=== PATIENT | female | born 1985 | race Caucasian/White ===

== ENCOUNTER 2018-05-05 12:30 | Outpatient (RCR) | payer OTHER, SELFPAY ==
--- NOTE | 2018-04-28 10:30 | PTTR_ITS ---
DATE: 04/28/18 SUBJECTIVE: Sharon has been under the care of Ghassan Min ND at [facility] in [place]. She has been under extensive diagnostics and blood work for Lyme disease, Carla as well as adrenal dysfunction. She was fortunately (-) for Lyme, but remarkable positive for Carla as we had expected , and does have some degree of adrenal dysfunction as well. Both of these diagnoses explain her general malaise. She does state, however, that her muscle pain is much improved since beginning her Carla dye in her Carla treatment, now with a 20-30% improvement. She continues to experience daily headaches and tension through the upper shoulders. Generally worsening during her period. She admits to discontinuing with her HEP as she has already felt over whelmed with her Carla treatment. She is here today to reinitiate aquatic therapy as she would like to get back into conditioning that would be non-aggravating to her. She would like a refresher in eduction in her exercises. She also feels that some intermittent treatment to her neck would be helpful for her symptom management, but she doesn't feel she needs this at high frequency. OBJECTIVE: ROM: C-spine 70 degrees bilateral rotation, sidebend 45, flexion/extension 45 degrees, OA WNL. Bilateral UE's are about 170 degrees flexion/abduction with end range soft tissue restriction, IR/ER WNL. Lumbar movements are essentially WNL, but she reports end range tightness, particularly into flexion/extension and demonstrates some facial grimacing and slow movement getting out of the position due to her stiffness. Bilateral hips are WNL, but has anterior hip and groin pain with end range adduction and IR. Passive lumbar movements are full into rotation and with SLR , but again has general stiffness throughout her SLR only achieves about 60 degrees bilaterally. ACCESSORY MOTIONS: Looked at her primary complaint of the c-spine demonstrating good articular movement and PA's unilaterally and centrally, OA joint is WNL and non-irritable. PALPATION: Minimal tension appreciated through the cervical, thoracic region, but tenderness along OA region bilateral upper traps, paraspinals and through the lumbar fascia. Therapeutic procedures ([id number]). In addition to above assessment, review use of proper intrinsic core activation, glut and segmental bridging for general stabilization and postural recruitment. She is verbally encouraged to complete 20-30 mins of basic exercise per day of just walking, swimming, stationary cycling, etc. . . for central nervous system stimulation for pain management, via endorphin, serotonin release to attempt proper posture with all activities to refrain from exacerbation of neck pain. She is then seen by Mary Peterson PTA for completion of some manual work per my instruction due to extensive amount of time with her re-assessment today. A: Sharon returns to PT with continued soft tissue dysfunction, but improved since initiating treatment for systemic Carla. Unfortunately, her GI issues and fatigue are not greatly improved, but this is anticipated to improve as she continues with her treatment. At this point, I think initiating aquatic therapy is required to offer some low impact conditioning that will not exacerbate her fascial pain. She will only need 2-3 session for review of her exercises and ensure that she can do this independently. As she gains strength and improved tolerance to exercise, I think then transition to a land based conditioning program, would certainly be appropriate. Otherwise, she is encouraged to complete 20-30 mins of cardiovascular low impact exercise daily for central nervous system stimulation as noted above. While she demonstrates fairly good mobility,. she does have gross stiffness and restriction at end ranges mainly due to her facial dysfunction, which makes her appropriate for PT management for soft tissue m manipulation, general stretching and OA mobilization to reduce cervicogenic fascial pain as needed. P: Schedule 1-2 aquatic sessions for progression onto independent routine and education in proper exercises. She will be seen here for manual therapy of the cervical, thoracic and OA region for pain management extending through the lumbar spine as needed, and manual stretching to reduce fascial restriction. Transition onto a land based strengthening program as her symptoms allow. Direct treatment time: 30 mins Total treatment time: 30 mins JH/dl
--- NOTE | 2018-04-28 13:03 | PTTR_ITS ---
DATE: 04/28/18 OBJECTIVE: Co Treatment with PT Luisa Richard Manual therapy: ([id number]). Pt received IASTM with down regulation throughout the cervical para spinals and mid thoracic para spinals while in prone. Pt received STM and trigger point release techniques throughout bilateral cervical para spinals, upper traps, and mid thoracic para spinals. Direct treatment time: 20 Total treatment time: 20
--- NOTE | 2018-05-03 10:51 | AT_ITS ---
05/03/18 ATx2 Skilled cueing throughout for whole body conditioning. Skilled cues for proper movement pattern and intrinsic activation. Incorporated cardiovascular activities for general conditioning purposes and central stimulation.
--- NOTE | 2018-05-05 14:48 | AT_ITS ---
05/05/18 SUBJECTIVE: Sharon stating that she felt okay after last session. She knew that she had done something. Would like to keep most exercises the same today. OBJECTIVE: Aquatic therapy [id number]: Pt instructed in her aquatic therapy program for overall full body strength and conditioning activities. Cues provided throughout for appropriate core muscle activation and appropriate movement mechanics throughout. Kept pt's program the same and we will see how she tolerates this. See flow sheet for specifics. Direct time: 30 minutes Total time: 45 minutes with pt performing her cardiovascular activities and less skilled exercises independently. Daniela Reyes, [employer]
== END 2018-05-06 23:59 | disposition home or self-care (01) ==
LOC: PT 12:30
PROVIDERS: Referring Provider Internal Medicine; Visit Provider Internal Medicine
DX: M54.2 Cervicalgia (principal); M54.5 Low back pain; M25.551 Pain in right hip; M79.9 Soft tissue disorder, unspecified
CPT/HCPCS: 97110; 97113; 97140

== ENCOUNTER 2020-09-25 04:29 | Outpatient (CLI) | payer BC, SELFPAY ==
[2020-09-25 15:48] LABS: Abs Immature Grans 0.02 10^3/uL (0.0-0.06); Absolute Basophil Count 0.03 10^3/uL (0.0-0.2); Absolute Eosinophil Count 0.04 10^3/uL (0.0-0.7); Absolute Lymphocyte Count 1.59 10^3/uL (1.2-3.4); Absolute Monocyte Count 0.51 10^3/uL (0.1-0.8); Absolute Neutrophil Count 3.04 10^3/uL (1.2-6.7); Basophils % 0.6; Eosinophils % 0.8; HCT 40.4 % (36.0-46.0); Immature Grans % 0.4; Lymphocytes % 30.4; MCH 28.4 pg (27.0-33.0); MCHC 32.2 % (32.0-36.0); MCV 88.4 fL (80-95); Monocytes % 9.8; Nucleated RBC 0 %; Platelet Count 217 10^3/uL (130-400); RBC 4.57 10^6/uL (3.93-5.22); RDW 12.2 % (11.7-14.6); RDW-SD 39.8 fL; WBC 5.23 10^3/uL (4.4-10.8)
[2020-09-25 16:34] LABS: Bilirubin Negative (Negative); Blood Negative (Negative); Clarity Clear (Clear); Glucose Negative (Negative); Ketones Negative (Negative); Leukocyte Esterase Negative (Negative); Nitrite Negative (Negative); Specific Gravity >= 1.030 (1.005-1.025); Urobilinogen 0.2 EU/dL (Up TO 0.2)
[2020-09-25 16:38] LABS: ALT 20 U/L (14-59); AST 13 U/L (15-37); Albumin 4.2 g/dL (3.4-5.0); Alkaline Phosphatase 56 U/L (46-116); Anion Gap 5.2 mmol/L (3-11); BUN 14 mg/dL (7-18); Bilirubin, Total 0.3 mg/dL (0.2-1.0); CO2 29.8 mmol/L (21.0-32.0); CREATININE 0.87 mg/dL (0.55-1.02); Calcium 8.4 mg/dL (8.5-10.1); Chloride 103 mmol/L (98-107); Glucose 79 mg/dL (74-106); Potassium 4.3 mmol/L (3.5-5.1); Sodium 138 mmol/L (136-145); TSH (W/Ref FT4) 1.72 uIU/mL (0.36-3.74); Total Protein 7.5 g/dL (6.4-8.2)
== END 2020-09-25 04:49 ==
PROVIDERS: PCP Family Medicine; Visit Provider Family Medicine
DX: R10.9 Unspecified abdominal pain (principal)
CPT/HCPCS: 36415; 80053; 81003; 84443; 85025

== ENCOUNTER 2020-11-19 15:55 | Outpatient (REF) | payer BC, SELFPAY ==
--- NOTE | 2020-11-19 15:45 | PAPFT_PTH ---
PATIENT: Sharon Herrera LOC: [facility] U#:[id number] AGE/SX: 35/F ROOM: RE11/19/[address]: Alyssia Mckinney : 1985 BED: DIS: 11/19/2020 SPEC #: [id number] RECD: 11/19/20 17:49 STATUS: BASSEM WENDY #: [id number] SHOLA: 11/19/20 15:[address]: Alyssia Mckinney DEPT: [facility] Cytology RECD BY: Franny Crowley ENTERED: 11/19/20 17:49 SP TYPE: PAPFT AUGUSTUS DR: Unknown,Unknown Tissues: 1 - CX/ENDOCX FOR PAP SMEARS Procedures: PAP THIN PREP/UVM Screening HPV DNA PROBE Comments: [id number]
== END 2020-11-19 15:56 | disposition home or self-care (01) ==
LOC: LBN 15:55
PROVIDERS: Visit Provider Obstetrics & Gynecology Gynecology
DX: Z12.4 Encounter for screening for malignant neoplasm of cervix (principal); Z11.51 Encounter for screening for human papillomavirus (HPV)
CPT/HCPCS: 88142; 87624

== ENCOUNTER 2021-12-17 01:34 | Outpatient (CLI) | payer BC, SELFPAY ==
--- NOTE | 2021-12-17 | DI.MRI_ITS ---
Exam(s) MR LOWER JOINT RT WO EXAM: MR LOWER JOINT RT WO CLINICAL HISTORY: H/O WORSENING PAIN WITH PLANTAR FLEXION RT ANKLE,TINGLING TECHNIQUE: Multiplanar multisequence MRI was performed without intravenous contrast. COMPARISON: No exams were available for comparison FINDINGS: BONES/JOINTS: No fracture or contusion pattern. No bone lesions identified. The talar dome is smooth. The ankle mortise is maintained. No joint effusion is present. LIGAMENTS: The tibiofibular and calcaneofibular ligaments are intact. The talofibular ligaments are i ntact. The deltoid ligament is intact. The syndesmosis is unremarkable. Sinus tarsi is normal. MUSCULOTENDINOUS STRUCTURES: Achilles tendon: Unremarkable. Plantar fascia: Unremarkable. Anterior Extensor tendons: Unremarkable. Posterior Tibialis: Unremarkable. Flexor Digitorum longus: Unremarkable. Flexor Hallicus longus: Unremarkable. Peroneus longus: Unremarkable. Peroneus brevis:Unremarkable. SOFT TISSUES: Unremarkable. OTHER FINDINGS: None. IMPRESSION: Unremarkable MRI of the Right ankle. DATA REPOSITORY:
== END 2021-12-17 01:54 ==
PROVIDERS: PCP Family Medicine; Visit Provider Podiatrist
DX: M25.571 Pain in right ankle and joints of right foot (principal); R20.2 Paresthesia of skin
CPT/HCPCS: 73721

== ENCOUNTER 2023-07-20 10:29 | Emergency (ER) | payer BC, SELFPAY ==
[2023-07-20 10:32] VITALS: BP 145/95; PULSE 88; RESP 16; TEMP 37.2; O2SAT 99
--- NOTE | 2023-07-20 10:43 | ED.GENADUL_ITS ---
Discharge Plan Disposition Patient Disposition: Home Condition: Stable Discharge Details Clinical Impression: Contusion of right foot Primary Care Provider: Anila Hurley ED Provider: Kailee Styles Home Meds and New Rx's Prescriptions: No Action duloxetine [Cymbalta] 60 mg capsule,delayed release(DR/EC) 60 mg PO DAILY Mirena 20 mcg/24 hours (6 yrs) 52 mg intrauterine device 1 device Intrauterine ibuprofen 200 MG capsule 3 cap PO TID PRN albuterol sulfate [Proventil HFA] 6.7 GM HFA aerosol inhaler 2 puff Inhalation QID PRNQty: 3 lamotrigine 150 mg tablet 150 mg PO DAILY Qty: 30 5RF buspirone 10 mg tablet 20 mg PO DAILY Patient Comments: TAKE ONE TABLET BY MOUTH TWICE A DAY melatonin 3 mg tablet 3 mg PO HS Patient Comments: TAKE ONE TABLET BY MOUTH AT BEDTIME NEEDED FOR INSOMNIA Discharge Instructions Instructions: Foot Contusion (ED) Additional Instructions: Use Tylenol or Motrin as needed for pain. Continue to ice and elevate. Referrals: Anila Hurley MD [Primary Care Provider] - Discharge Data Discharge Physician: Kailee Styles Medical Decision Making 38-year-old female presents for evaluation of ongoing pain to her right fifth toe and lateral foot. Neurologically intact. X-ray negative for fracture. Patient offered postop shoe but declined. She will continue using Tylenol or Motrin as needed for pain. She understands indications to return. HPI General Date/Time Provider Initiated Documentation: 07/20/23 10:42 . HPI Narrative: 38-year-old female presents for evaluation right foot pain. Patient states that she accidentally kicked the bed several days ago. She had ongoing pain to her right fifth toe and foot. No numbness or tingling. No other injury. Related Data Home Medications Medication Instructions Recorded Confirmed ibuprofen 200 mg capsule 3 cap PO TID PRN 02/20/13 07/20/23 albuterol sulfate 90 mcg/actuation 2 puff inhalation QID PRN #3 ea 02/26/16 07/20/23 aerosol inhaler (Proventil HFA) lamotrigine 150 mg tablet 150 mg PO DAILY #30 tab-caps 11/02/18 07/20/23 levonorgestrel 21 mcg/24 hours (8 1 device intrauterine 02/18/21 04/28/22 yrs) 52 mg intrauterine device (Mirena) duloxetine 60 mg capsule,delayed 60 mg PO DAILY 03/12/22 07/20/23 release (Cymbalta) buspirone 10 mg tablet 20 mg PO DAILY 07/20/23 07/20/23 melatonin 3 mg tablet 3 mg PO HS 07/20/23 07/20/23 Previous Rx's Medication Instructions Recorded lamotrigine 150 mg tablet 150 mg PO DAILY #30 tab-caps 11/02/18 Allergies Allergy/AdvReac Type Severity Reaction Status Date / Time No Known Drug Allergies Allergy Verified 07/20/23 10:35 General Stated Complaint: Orthopedic LUZ: 4 Review of Systems Narrative: Review of systems as above. PFSH All Active Problems (Updated 07/20/23 @ 11:20 by Kailee Styles MD) Contusion of right foot (Acute) Ankle impingement syndrome, right (Acute) Ankle pain, right (Acute) Gastrointestinal discomfort (Acute) Onset 2013. Constipation dominant. 02/2021 Eval by [facility] [place] GI service. Vaginal candidiasis (Acute) hx of recurrent vag candidiasis years ago. 11/19/20 new infection: Rx with fluconazole Temporomandibular joint disorder (Acute 02/20/13) Polyp of colon (Acute) 10/30/11 DR. MURPHY; TUBULAR ADENOMA (1-3 YEAR F/U) First degree uterine prolapse (Acute 06/28/13) Depressive disorder (Acute) Constipation (Acute) Bipolar disorder (Acute 06/29/11) Asthma (Acute) Anxiety (Acute 06/29/11) Acne (Acute) IUD surveillance (Acute) 02/2021. Old Mirena replaced with new Mirena. Medical History GI symptom Asthma Depressive disorder Essential hypertension complicating or reason for care during Surgical History S/P tonsillectomy and adenoidectomy Colonoscopy - MAC 10/30/11 DR. MURPHY; TUBULAR ADENOMA (1-3 YR F/U) 08/01/14 DR MURPHY Family History Mother Essential hypertension Depression Hyperlipidemia Grandmother Liver cancer Depression Breast cancer Asthma Father Depression Sister Depression Brother Depression Brother No problems noted. Brother No problems noted. Grandfather No problems noted. Grandfather No problems noted. Grandmother Depression Heart disease Daughter Asthma Daughter No problems noted. Social History Smoking/Tobacco Use Status: Never Smoking risk assessment performed?: Yes Alcohol Intake: current Alcohol Intake frequency: a few times a week Drug use: Never Substance use type: does not use Household members: significant other, children and other Details: Don x4 years. 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 Seatbelt use: always Do you feel safe at home: Yes Do you feel safe in your relationship?: Yes Female Reproductive History Menstrual control method: progestin IUCD History History 2 Para Hx # Term Pregnancies 2 Multiple births Hx # Pregnancies Ectopic pregnancies AB induced Hx Number of Living Children AB spontaneous Exam Narrative Exam Narrative: General: non-toxic, no respiratory distress, comfortable HEENT: normocephalic, atraumatic, lids and lashes normal, PERRL, EOMI, anicteric sclera, no conjunctival injection, moist oral mucosa Musculoskeletal: Diffuse pain to palpation distal right metatarsal, bruising to distal fifth metatarsal, 2+ dorsal pedal pulses, mild decreased range of motion left fifth toe, no pain lateral malleolus, otherwise full range of motion of arms and legs, no tenderness to palpation. no clubbing, cyanosis, or edema Neurologic: appropriate for age, strength normal Psych: alert and oriented Skin: As above, otherwise no petechiae, no lesions, warm and dry Course Vital Signs Vital signs: Vital Signs Temperature 37.2 C 07/20/23 10:32 Pulse 88 07/20/23 10:32 Respiratory Rate 16 07/20/23 10:32 Blood Pressure 145/95 H 07/20/23 10:32 Pulse Oximetry 99 07/20/23 10:32 Temperature 37.2 C 07/20/23 10:32 Temperature Source Skin 07/20/23 10:32 Pulse 88 07/20/23 10:32 Respiratory Rate 16 07/20/23 10:32 Respiratory Effort Normal, Non-Labored 07/20/23 10:36 Blood Pressure 145/95 H 07/20/23 10:32 Blood Pressure Position Sitting 07/20/23 10:32 Pulse Oximetry 99 07/20/23 10:32 Oxygen Delivery Method Room Air 07/20/23 10:32 Oxygen Flow Rate 0 07/20/23 10:32 Pain Level 9 07/20/23 10:32
--- NOTE | 2023-07-20 11:15 | DI.RAD_ITS ---
Exam(s) XR FOOT RT COMPLETE EXAM: XR FOOT RT COMPLETE CLINICAL HISTORY: pain, injury 5th metatarsal. TECHNIQUE: 2D digital imaging was performed. Three views. COMPARISON: No exams were available for comparison FINDINGS: BONES: No acute fracture is present. No bony destructive lesion is seen. JOINTS: No dislocation present. SOFT TISSUE: Normal. IMPRESSION: Unremarkable radiographs of the right foot. DATA REPOSITORY: RADIATION DOSE DELIVERED:
== END 2023-07-20 11:27 | disposition home or self-care (01) ==
PROVIDERS: Emergency Provider Emergency Medicine Emergency Medical Services; PCP Internal Medicine
DX: S90.121A Contusion of right lesser toe(s) without damage to nail, initial encounter (principal); W22.03XA Walked into furniture, initial encounter; Y93.01 Activity, walking, marching and hiking
CPT/HCPCS: 73630